=== PATIENT | female | born 1940 | race Caucasian/White ===

== ENCOUNTER 2017-03-27 10:19 | Day surgery (SDC) | payer MEDICARE, OTHER ==
--- NOTE | ~2017-03-27 | EGD ---
EGD REPORT [facility] [address] [place] [address] NAME: RENETTA MCKEON : [birth year] STATUS : REG [facility]#: [id number] AGE: 77 ADM/REG DATE : 03/27/17 MR#: [id number] REPORT SERV DATE: 03/27/17 DICTATED BY: ANNETTE VALDEZ DATE: 03/27/17 REPORT STATUS : Draft TRANSCRIBED BY: [facility] DATE: 03/27/17 Endoscopy Center Patient Name: Renetta Mckeon Date of : 1940 Attending MD: ANNETTE VALDEZ MD Procedure Date No Time: 03/27/2017 Procedure: Colonoscopy Indications: Surveillance: Personal history of adenomatous polyps on last colonoscopy > 5 years ago Referring MD: ANGELA NUGENT Medicines: Propofol per Anesthesia Complications: No immediate complications. Estimated blood loss: None. Procedure: Pre-Anesthesia Assessment: - After reviewing the risks and benefits, the patient was deemed in satisfactory condition to undergo the procedure. - Prior to the procedure, a History and Physical was performed, and patient medications and allergies were reviewed. The patient's tolerance of previous anesthesia was also reviewed. The risks and benefits of the procedure and the sedation options and risks were discussed with the patient. All questions were answered, and informed consent was obtained. Prior Anticoagulants: The patient has taken Eliquis, last dose was 2 days prior to procedure. ASA Grade Assessment: III - A patient with severe systemic disease. After reviewing the risks and benefits, the patient was deemed in satisfactory condition to undergo the procedure. After I obtained informed consent, the scope was passed under direct vision. Throughout the procedure, the patient's blood pressure, pulse, and oxygen saturations were monitored continuously. The CF [id number] was introduced through the anus and advanced to the cecum, identified by appendiceal orifice and ileocecal valve. The colonoscopy was somewhat difficult. Successful completion of the procedure was aided by straightening and shortening the scope to obtain bowel loop reduction. The ileocecal valve and appendiceal orifice were photographed. The patient tolerated the procedure well. The quality of the bowel preparation was adequate. The bowel preparation used was SUPREP. Scope withdrawal time was 16 minutes. Findings: The perianal and digital rectal examinations were normal. Pertinent EGD REPORT [address] [address] NAME: RENETTA MCKEON : [birth year] STATUS : REG [facility] PAT#: [id number] AGE: 77 ADM/REG DATE : 03/27/17 MR#: [id number] REPORT SERV DATE: 03/27/17 DICTATED BY: ANNETTE VALDEZ DATE: 03/27/17 REPORT STATUS : Draft TRANSCRIBED BY: [employer] DATE: 03/27/17 negatives include normal sphincter tone. Non-bleeding internal hemorrhoids were found during retroflexion and were medium-sized and Grade I (internal hemorrhoids that do not prolapse). Multiple medium-mouthed diverticula were found in the entire colon. A sessile polyp was found in the ascending colon. The polyp was 5 mm in size. The polyp was removed with a cold snare. Resection and retrieval were complete. Estimated blood loss: none. A sessile polyp was found in the transverse colon. The polyp was diminutive in size. The polyp was removed with a cold biopsy forceps. Resection and retrieval were complete. Estimated blood loss: none. The exam was otherwise without abnormality. Impression: - Non-bleeding internal hemorrhoids. - Moderate diverticulosis in the entire examined colon. - One 5 mm polyp in the ascending colon. Resected and retrieved. - One diminutive polyp in the transverse colon. Resected and retrieved. - The examination was otherwise normal. Recommendation: - Discharge patient to home (ambulatory). - High fiber diet indefinitely. - Continue present medications. - Resume Eliquis at prior dose tomorrow. - Await pathology results. - Repeat colonoscopy will not be performed due to advanced age. - Patient has a contact number available for emergencies. The signs and symptoms of potential delayed complications were discussed with the patient. Return to normal activities tomorrow. Written discharge instructions were provided to the patient. Procedure Code(s): --- Professional --- 10242, Colonoscopy, flexible, proximal to splenic flexure; with removal of tumor(s), polyp(s), or other lesion(s) by snare technique 53109, 59, Colonoscopy, flexible, proximal to splenic flexure; with biopsy, single or multiple Diagnosis Code(s): --- Professional --- K64.0, First degree hemorrhoids K57.30, Diverticulosis of large intestine without perforation or abscess without bleeding D12.3, Benign neoplasm of transverse colon D12.2, Benign neoplasm of ascending colon EGD REPORT [address] [address] NAME: RENETTA MCKEON : [birth year] STATUS : REG [facility] PAT#: [id number] AGE: 77 ADM/REG DATE : 03/27/17 MR#: [id number] REPORT SERV DATE: 03/27/17 DICTATED BY: ANNETTE VALDEZ. DATE: 03/27/17 REPORT STATUS : Draft TRANSCRIBED BY: [employer] DATE: 03/27/17 Z86.010, Personal history of colonic polyps CPT copyright 2013 [employer]. All rights reserved. The codes documented in this report are preliminary and upon academic department chair review may be revised to meet current compliance requirements. ANNTETE VALDEZ MD 03/27/2017 12:06 PM This report has been signed electronically. Number of Addenda: 0 Note Initiated On: 03/27/2017 8:29 AM Scope Withdrawal Time 0 hours 16 minutes 3 seconds
[~2017-03-27 10:19] MED LIST: ALPHAGAN P0.1 % OPH; AMARYL4 PO; CORDARONE PO; COREG3 PO; DILT-XR180 MG PO; DIOVAN HCT PO; ELIQUIS 5 MG TAB5 MG PO; GLUCPH PO; K-TABS10 MEQ PO; L40 PO; MICRO-K10 MEQ PO; PRILO PO; SYN075 PO; SYN1 PO; TOPXL100 PO; ULTRAM50 PO; XALAT OPH
== END 2017-03-27 23:59 | disposition home or self-care (01) ==
LOC: DMU 10:19
PROVIDERS: Internal Medicine Gastroenterology
PROC: 0DBK8ZZ Excision of Ascending Colon, Via Natural or Artificial Opening Endoscopic (ICD-10-PCS; principal; 2017-03-27 11:30)
PROC: 0DBL8ZZ Excision of Transverse Colon, Via Natural or Artificial Opening Endoscopic (ICD-10-PCS; 2017-03-27 11:30)
DX: Z12.11 Encounter for screening for malignant neoplasm of colon (principal); D12.2 Benign neoplasm of ascending colon; D12.3 Benign neoplasm of transverse colon; K64.0 First degree hemorrhoids; K57.30 Diverticulosis of large intestine without perforation or abscess without bleeding; H40.9 Unspecified glaucoma; H26.9 Unspecified cataract; I10 Essential (primary) hypertension; I48.91 Unspecified atrial fibrillation; I49.9 Cardiac arrhythmia, unspecified; E11.9 Type 2 diabetes mellitus without complications; E03.9 Hypothyroidism, unspecified; M19.90 Unspecified osteoarthritis, unspecified site; Z88.1 Allergy status to other antibiotic agents; Z98.890 Other specified postprocedural states; Z96.1 Presence of intraocular lens; Z90.49 Acquired absence of other specified parts of digestive tract; Z86.010 Personal history of colon polyps; Z79.899 Other long term (current) drug therapy; Z79.891 Long term (current) use of opiate analgesic
CPT/HCPCS: 82962; 88305